=== PATIENT | female | born 1965 | race Caucasian/White ===

== ENCOUNTER 2018-01-28 09:53 | Outpatient (CLI) | payer BC, SELFPAY ==
[2018-01-28 11:57] LABS: BUN 16 mg/dL (7-18); CREATININE 0.95 mg/dL (0.55-1.02); Calcium 9.2 mg/dL (8.5-10.1); Chloride 102 mmol/L (98-107); Cholesterol 241 mg/dL (50-200); Glucose 90 mg/dL (70-100); HDL Cholesterol 60 mg/dL (40-60); LDL CHOLESTEROL 156 mg/dL (<100); Potassium 4.2 mmol/L (3.5-5.1); Sodium 140 mmol/L (136-145); Triglyceride 161 mg/dL (30-150)
== END 2018-01-28 10:13 ==
PROVIDERS: PCP Nurse Practitioner Family; Visit Provider Nurse Practitioner Family
DX: Z13.1 Encounter for screening for diabetes mellitus (principal); E78.5 Hyperlipidemia, unspecified
CPT/HCPCS: 36415; 80048; 80061; 83721

== ENCOUNTER 2018-02-21 01:16 | Outpatient (CLI) | payer BC, SELFPAY ==
--- NOTE | 2018-02-21 13:50 | DI.MAMMO_ITS ---
SYMPTOMS/DIAGNOSIS: SCREENING, Z12.31 MAMMOGRAMS: Mammograms were interpreted according to the usual protocol including computer analysis with CAD system, tomosynthesis and C view imaging. Comparison is with the prior examinations. The ovoid density in the outer left breast appears stable. No suspicious masses or microcalcifications are seen. The skin and axillae are unremarkable. IMPRESSION: No evidence for malignancy. Yearly mammography is recommended. Category 2, breast density B. MQSA ASSESSMENT OF FINDINGS: Negative with benign findings. Category 2. Patient will receive a letter notifying them of these results. BI-RADS category B. There are scattered areas of fibroglandular density.
== END 2018-02-21 01:36 ==
PROVIDERS: PCP Nurse Practitioner Family; Visit Provider Nurse Practitioner Family
DX: Z12.31 Encounter for screening mammogram for malignant neoplasm of breast (principal)
CPT/HCPCS: 77063; 77067

== ENCOUNTER 2018-04-11 15:52 | Outpatient (CLI) | payer OTHER, SELFPAY ==
[2018-04-11 17:51] LABS: TSH (W/Ref FT4) 1.68 uIU/mL (0.358-3.74)
== END 2018-04-11 16:12 ==
PROVIDERS: PCP Nurse Practitioner Family; Visit Provider Nurse Practitioner Family
DX: E03.9 Hypothyroidism, unspecified (principal)
CPT/HCPCS: 36415; 84443

== ENCOUNTER 2019-02-27 00:31 | Outpatient (CLI) | payer OTHER, SELFPAY ==
--- NOTE | 2019-02-27 14:53 | DI.MAMMO_ITS ---
EXAM: MAMMO SCREENING CLINICAL HISTORY: Screening.z12.39 TECHNIQUE: Mammograms were interpreted according to the usual protocol including computer analysis w [employer] CAD system, tomosynthesis and C-view imaging. FINDINGS: The breasts are of moderate density with fairly symmetrical distribution of fibroglandular tissue. N o dominant mass or clumped microcalcification is identified in either breast. Current examination is compared with previous examinations including February 2018 and there has been no gross interval maulik nge in appearance in comparison with previous studies. IMPRESSION: No specific evidence of malignancy at this time. Routine screening examinations are suggested at year ly intervals due to the family history of breast carcinoma. Category 1. Breast density, category B. BI-RADS Cat 1 - Negative. Breast Density - Category B - Scattered areas of fibroglandular density.
== END 2019-02-27 00:51 ==
PROVIDERS: PCP Nurse Practitioner Family; Visit Provider Nurse Practitioner Family
DX: Z12.31 Encounter for screening mammogram for malignant neoplasm of breast (principal); Z80.3 Family history of malignant neoplasm of breast
CPT/HCPCS: 77063; 77067

== ENCOUNTER 2020-03-26 04:34 | Outpatient (CLI) | payer OTHER, SELFPAY ==
--- NOTE | 2020-03-26 08:30 | DI.MAMMO_ITS ---
EXAM: MG MAMMO SCREENING CLINICAL HISTORY: screening. TECHNIQUE: Bilateral full field digital CC and MLO mammographic images were obtained with 3D tomosyn thesis and utilizing computer aided detection (CAD). COMPARISON: Prior mammograms dating back to 2010, the most recent being February 2019. FINDINGS: There are no CAD designations. No new right breast findings. Small nodular density superiorly in the right breast is unchanged from prior studies. In the left breast on cc imaging there is a suggestion of increasing subtle nodular densities medial of center, posteriorly. These average 5 millimeters in size. Less evident on the M LO view. There are no malignant-appearing microcalcification groups in this region or elsewhere in e ither breast. There is no significant architectural distortion nor skin thickening-retraction. IMPRESSION: 1. Stable benign right breast findings. 2. Possible nodular densities posteriorly in the left breast. Spot compression cc 3D view recommend ed. Also possible ultrasound. BI-RADS Category 0 - Assessment Incomplete: Need additional imaging evaluation Breast Density - Category B - Scattered areas of fibroglandular density Breast density Category C or D implies that the patient has dense breast tissue. Dense breast tissue can make it harder to find cancer on a mammogram. Dense breast tissue is also associated with an incr eased risk of breast cancer. This information about the result of the mammogram report was provided to the patient to raise their awareness. Use this report when you speak with the patient about their risks for breast cancer, which includes their family history. At that time, you may recommend additional screening tests (Ultrasoun d or MRI) as these tests may add significant information. A negative radiographic report should not delay biopsy if a dominant or clinically suspicious mass is present. Up to ten percent of cancers are not identified on mammography. A negative report may reinforce clinical impression. Adenosis and dense breasts may obscure an underlying neoplasm. False positive reports average 6 to 10%. Patient will receive a letter notifying them of these results.
== END 2020-03-26 04:54 ==
PROVIDERS: PCP Nurse Practitioner Adult Health; Visit Provider Nurse Practitioner Family
DX: Z12.31 Encounter for screening mammogram for malignant neoplasm of breast (principal); R92.8 Other abnormal and inconclusive findings on diagnostic imaging of breast
CPT/HCPCS: 77063; 77067

== ENCOUNTER 2020-04-02 03:03 | Outpatient (CLI) | payer OTHER, SELFPAY ==
--- NOTE | 2020-04-02 | DI.MAMMO_ITS ---
EXAM: MG MAMMO SCREEN CALL BACK UNI and U/S breast LT limited CLINICAL HISTORY: F/U MAMMO,LT BREAST SUBTLE POSSIBLE NODULAR DENSITIES. TECHNIQUE: Craniocaudal and mediolateral oblique Full Field Digital Mammography views of the left br east with Computer Aided Diagnosis followed by Tomosynthesis and left breast ultrasound. COMPARISON: Priors available for comparison. FINDINGS: Mammography/Tomosynthesis: Masses/Architectural Distortion: There are few stable tiny (less than 5 mm) nodules in the outer left breast. No areas of architectural distortion are seen. Microcalcifictions: No suspicious pleomorphic-type are seen. Skin Thickening/Nipple Retraction: None. Left breast US: Echotexture: Normal appearance of the glandular tissue. Shadowing: No suspicious foci. Cyst: There is a 4 mm cyst at the 6 o'clock position of the left breast 5 cm from the nipple. Solid lesions: None seen. Ductal dilation: None. IMPRESSION: 1. No evidence of malignancy is noted. 2. Unless there is more urgent need, follow-up screening mammography is recommended, as per [place] [employer] guidelines. 3. The findings were discussed with the patient on the date of the examination. BI-RADS Category 2 - Benign Findings Breast Density - Category B - Scattered areas of fibroglandular density Breast density Category C or D implies that the patient has dense breast tissue. Dense breast tissue can make it harder to find cancer on a mammogram. Dense breast tissue is also associated with an incr eased risk of breast cancer. This information about the result of the mammogram report was provided to the patient to raise their awareness. Use this report when you speak with the patient about their risks for breast cancer, which includes their family history. At that time, you may recommend additional screening tests (Ultrasoun d or MRI) as these tests may add significant information. A negative radiographic report should not delay biopsy if a dominant or clinically suspicious mass is present. Up to ten percent of cancers are not identified on mammography. A negative report may reinforce clinical impression. Adenosis and dense breasts may obscure an underlying neoplasm. False positive reports average 6 to 10%. Patient will receive a letter notifying them of these results.
== END 2020-04-02 03:23 ==
PROVIDERS: PCP Nurse Practitioner Adult Health; Visit Provider Nurse Practitioner Family
DX: R92.8 Other abnormal and inconclusive findings on diagnostic imaging of breast (principal); N60.02 Solitary cyst of left breast
CPT/HCPCS: 76642; 77063; 77067

== ENCOUNTER 2020-10-16 14:17 | Outpatient (REF) | payer OTHER, SELFPAY ==
[2020-10-17 23:55] LABS: COVID-19 RT-PCR UVMMC Result Negative (Negative)
== END 2020-10-16 14:18 | disposition home or self-care (01) ==
LOC: LBN 14:17
PROVIDERS: PCP Nurse Practitioner Adult Health; Visit Provider Nurse Practitioner Family
DX: Z20.822 Contact with and (suspected) exposure to COVID-19 (principal); J02.9 Acute pharyngitis, unspecified
CPT/HCPCS: U0003

== ENCOUNTER 2021-02-24 02:34 | Outpatient (CLI) | payer OTHER, SELFPAY ==
[2021-02-24 10:23] LABS: ALT 26 U/L (14-59); AST 15 U/L (15-37); Albumin 3.7 g/dL (3.4-5.0); Alkaline Phosphatase 84 U/L (46-116); BUN 17 mg/dL (7-18); Bilirubin, Total 0.5 mg/dL (0.2-1.0); CREATININE 0.9 mg/dL (0.55-1.02); Calcium 9.1 mg/dL (8.5-10.1); Calculated LDL 169 mg/dL (<100); Chloride 104 mmol/L (98-107); Cholesterol 264 mg/dL (<200); Glucose 93 mg/dL (74-106); HDL Cholesterol 66 mg/dL (40-60); Potassium 4.4 mmol/L (3.5-5.1); Sodium 140 mmol/L (136-145); Triglyceride 147 mg/dL (<150)
== END 2021-02-24 02:35 | disposition home or self-care (01) ==
LOC: LBO 02:34
PROVIDERS: PCP Nurse Practitioner Adult Health; Visit Provider Nurse Practitioner Adult Health
DX: Z13.220 Encounter for screening for lipoid disorders (principal); Z13.1 Encounter for screening for diabetes mellitus
CPT/HCPCS: 36415; 80053; 80061

== ENCOUNTER 2021-03-31 01:06 | Outpatient (CLI) | payer BC, SELFPAY ==
--- NOTE | 2021-03-31 06:30 | DI.MAMMO_ITS ---
Exam(s) MAMMO SCREENING EXAM: MAMMO SCREENING CLINICAL HISTORY: screening,z12.39. TECHNIQUE: Bilateral full field digital CC and MLO mammographic images were obtained with 3D tomosyn thesis and utilizing computer aided detection (CAD). COMPARISON: Prior mammograms were reviewed, the most recent being . FINDINGS: There has been no significant change in the appearance and distribution of the fibroglandular tissue. There are no new spiculated masses nor malignant appearing microcalcification groups. Benign-appearing nodules in both breasts appear unchanged from prior studies. There is no significant architectural distortion nor skin thickening-retraction. IMPRESSION: Stable benign findings. No radiographic evidence of malignancy. BI-RADS Category 2 - Benign Findings Breast Density - Category B - Scattered areas of fibroglandular density Breast density Category C or D implies that the patient has dense breast tissue. Dense breast tissue can make it harder to find cancer on a mammogram. Dense breast tissue is also associated with an incr eased risk of breast cancer. This information about the result of the mammogram report was provided to the patient to raise their awareness. Use this report when you speak with the patient about their risks for breast cancer, which includes their family history. At that time, you may recommend additional screening tests (Ultrasoun d or MRI) as these tests may add significant information. A negative radiographic report should not delay biopsy if a dominant or clinically suspicious mass is present. Up to ten percent of cancers are not identified on mammography. A negative report may reinforce clinical impression. Adenosis and dense breasts may obscure an underlying neoplasm. False positive reports average 6 to 10%. Patient will receive a letter notifying them of these results.
== END 2021-03-31 01:26 ==
PROVIDERS: PCP Nurse Practitioner Adult Health; Visit Provider Nurse Practitioner Adult Health
DX: Z12.31 Encounter for screening mammogram for malignant neoplasm of breast (principal)
CPT/HCPCS: 77063; 77067

== ENCOUNTER 2021-05-12 16:06 | Outpatient (REF) | payer BC, SELFPAY ==
--- NOTE | 2021-05-12 14:40 | PAPFT_PTH ---
PATIENT: Jaimee Oconnell LOC: [facility] U#:[id number] AGE/SX: 55/F ROOM: RE05/12/[address]: Nay Canada MD : 1965 BED: DIS: 05/12/2021 SPEC #: [id number] RECD: 05/12/21 17:49 STATUS: KATHRYN RENatan #: [id number] FRANKO: 05/12/21 14:[address]: Nay Canada DEPT: [facility] Cytology RECD BY: Leilani Mckay ENTERED: 05/12/21 17:50 SP TYPE: PAPFT GRACIA DR: Celia Mathew APRN Tissues: 1 - CX/ENDOCX FOR PAP SMEARS Procedures: PAP THIN PREP/UVM Screening HPV DNA PROBE Comments: [id number]
== END 2021-05-12 16:07 | disposition home or self-care (01) ==
LOC: LBN 16:06
PROVIDERS: PCP Nurse Practitioner Adult Health; Visit Provider Obstetrics & Gynecology
DX: Z12.4 Encounter for screening for malignant neoplasm of cervix (principal); Z11.51 Encounter for screening for human papillomavirus (HPV)
CPT/HCPCS: 88142; 87624

== ENCOUNTER 2022-03-22 03:22 | Outpatient (CLI) | payer BC, SELFPAY ==
[2022-03-22 12:28] LABS: ESR 6 mm/hr (0-30)
[2022-03-22 12:30] LABS: Abs Immature Grans 0.03 10^3/uL (0.0-0.06); Absolute Basophil Count 0.09 10^3/uL (0.0-0.2); Absolute Eosinophil Count 0.31 10^3/uL (0.0-0.7); Absolute Lymphocyte Count 2.45 10^3/uL (1.2-3.4); Absolute Monocyte Count 0.68 10^3/uL (0.1-0.8); Absolute Neutrophil Count 4.55 10^3/uL (1.2-6.7); Basophils % 1.1; Eosinophils % 3.8; HCT 43.9 % (36.0-46.0); HGB 14.6 g/dL (11.2-15.7); Immature Grans % 0.4; Lymphocytes % 30.2; MCHC 33.3 % (32.0-36.0); MCV 90 fL (80-95); MPV 10.9 fL (8.0-11.0); Monocytes % 8.4; Neutrophils % 56.1; Platelet Count 255 10^3/uL (130-400); RBC 4.86 10^6/uL (3.93-5.22); RDW 12.6 % (11.7-14.6); RDW-SD 41.9 fL; WBC 8.11 10^3/uL (4.4-10.8)
[2022-03-22 13:27] LABS: ALT 23 U/L (14-59); AST 22 U/L (15-37); Albumin 3.9 g/dL (3.4-5.0); Alkaline Phosphatase 87 U/L (46-116); BUN 19 mg/dL (7-18); Bilirubin, Total 0.4 mg/dL (0.2-1.0); CREATININE 0.9 mg/dL (0.55-1.02); Calcium 9.6 mg/dL (8.5-10.1); Chloride 103 mmol/L (98-107); Estimated GFR 74.57 (mL/min/1.73m2); Glucose 97 mg/dL (74-106); Potassium 3.8 mmol/L (3.5-5.1); Sodium 140 mmol/L (136-145); TSH (W/Ref FT4) 1.74 uIU/mL (0.36-3.74); Total Protein 7.5 g/dL (6.4-8.2)
== END 2022-03-22 03:23 | disposition home or self-care (01) ==
LOC: LOS 03:22
PROVIDERS: PCP Nurse Practitioner Adult Health; Visit Provider Family Medicine
DX: R11.0 Nausea; E78.5 Hyperlipidemia, unspecified; R42 Dizziness and giddiness
CPT/HCPCS: 36415; 80053; 85652; 84443; 85025

== ENCOUNTER 2022-03-23 13:47 | Outpatient (RCR) | payer BC, SELFPAY ==
--- NOTE | 2022-03-23 13:45 | HOLTER_ITS ---
APPROVED REPORT Conclusion This is a 48-hour Holter monitor ordered for dizziness Rhythm throughout was sinus with an average heart rate of 77. Minimum was 55, maximum 117 A total of 2 isolated premature ventricular contractions were recorded. There were 6 isolated premat ure atrial contractions There was no atrial fibrillation, no supraventricular tachycardia, no high-grade AV block, no pauses greater than 3 seconds
== END 2022-04-11 23:59 | disposition home or self-care (01) ==
LOC: CARDOPNVT 13:47
PROVIDERS: PCP Nurse Practitioner Adult Health; Visit Provider Family Medicine
DX: I49.3 Ventricular premature depolarization (principal)
CPT/HCPCS: 93225; 93226

== ENCOUNTER 2022-07-06 01:09 | Outpatient (CLI) | payer BC, SELFPAY ==
--- NOTE | 2022-07-06 08:28 | DI.MAMMO_ITS ---
Exam(s) MAMMO SCREENING EXAM: MAMMO SCREENING CLINICAL HISTORY: screening TECHNIQUE: Bilateral full field digital CC and MLO mammographic images were obtained with 3D tomosyn thesis and utilizing computer aided detection (CAD). COMPARISON: Available for comparison. FINDINGS: Masses/Architectural Distortion: There is a new ovoid 7 mm nodule in the posterior central left breas t on the MLO view. Microcalcifications: No suspicious pleomorphic-type are seen. Skin Thickening/Nipple Retraction: None. IMPRESSION: 1. New 7 mm nodule in the posterior central left breast on the MLO view. 2. A spot compression MLO views requested. A complete left breast ultrasound should be obtained at t hat time. BI-RADS Category 0 - Assessment Incomplete: Need additional imaging evaluation Breast Density - Category B - Scattered areas of fibroglandular density Breast density category C or D implies that the patient has dense breast tissue. Dense breast tissue is very common and is not abnormal but dense breast tissue can make it harder to find cancer on a ma mmogram. Also, dense breast tissue may increase their breast cancer risk. This information about the result of the mammogram report was provided to the patient to raise their awareness. Use this report when you speak with the patient about their risks for breast cancer, which includes their family hist ory. At that time, you may recommend for more screening tests (Ultrasound or MRI) as they might be us eful based on their risk. A negative radiographic report should not delay biopsy if a dominant or clinically suspicious mass is present. Up to ten percent of cancers are not identified on mammography. A negative report may reinforce clinical impression. Adenosis and dense breasts may obscure an underlying neoplasm. False positive reports average 6 to 10%. Patient will receive a letter notifying them of these results.
== END 2022-07-06 01:29 ==
LOC: DI 01:09
PROVIDERS: PCP Nurse Practitioner Adult Health; Visit Provider Obstetrics & Gynecology
DX: Z12.31 Encounter for screening mammogram for malignant neoplasm of breast (principal)
CPT/HCPCS: 77063; 77067

== ENCOUNTER 2022-07-10 02:05 | Outpatient (CLI) | payer BC, SELFPAY ==
--- NOTE | 2022-07-10 | DI.US_ITS ---
Exam(s) MG MAMMO SCREEN CALL BACK UNI US BREAST LT LIMITED EXAM: MG MAMMO SCREEN CALL BACK UNI and U/S breast LT limited CLINICAL HISTORY: F/U MAMMO, NEW 7 MM NODULE POSTERIOR LT BREAST. TECHNIQUE: Craniocaudal and mediolateral oblique Full Field Digital Mammography views of the left br east with Computer Aided Diagnosis followed by Tomosynthesis and left breast ultrasound. COMPARISON: Comparison is made with prior examinations. FINDINGS: Mammography/Tomosynthesis: Masses/Architectural Distortion: There is again seen a well-circumscribed 6 mm nodule in the medial l eft breast. No suspicious nodules or areas of architectural distortion are seen. Microcalcifictions: No suspicious pleomorphic-type are seen. Skin Thickening/Nipple Retraction: None. Limited left breast US: Echotexture: Normal appearance of the glandular tissue. Shadowing: No suspicious foci. Cyst: There is a 2.6 x 2.9 x 1.5 mm cyst at the 9 o'clock position of the left breast 2 cm from the n ipple. There is a 1.6 x 1.9 x 1.9 mm cyst at the 6 o'clock position of the left breast 4 cm from the nipple. Solid lesions: None seen. Ductal dilation: None. IMPRESSION: 1. No definite evidence of malignancy is noted. 2. A six-month follow-up left mammogram and ultrasound are requested for re-evaluation. 3. The findings were discussed with the patient on the date of the examination. BI-RADS Category 3 - 6 month - Probably Benign Finding: Recommend follow-up imaging in 6 months Breast Density - Category B - Scattered areas of fibroglandular density Breast density Category C or D implies that the patient has dense breast tissue. Dense breast tissue can make it harder to find cancer on a mammogram. Dense breast tissue is also associated with an incr eased risk of breast cancer. This information about the result of the mammogram report was provided to the patient to raise their awareness. Use this report when you speak with the patient about their risks for breast cancer, which includes their family history. At that time, you may recommend additional screening tests (Ultrasoun d or MRI) as these tests may add significant information. A negative radiographic report should not delay biopsy if a dominant or clinically suspicious mass is present. Up to ten percent of cancers are not identified on mammography. A negative report may reinforce clinical impression. Adenosis and dense breasts may obscure an underlying neoplasm. False positive reports average 6 to 10%. Patient will receive a letter notifying them of these results.
== END 2022-07-10 02:25 ==
PROVIDERS: PCP Nurse Practitioner Adult Health; Visit Provider Obstetrics & Gynecology
DX: R92.8 Other abnormal and inconclusive findings on diagnostic imaging of breast (principal)
CPT/HCPCS: 76642; 77063; 77067

== ENCOUNTER → 2023-01-31 01:54 | Outpatient (CLI) | payer BC, SELFPAY ==
--- NOTE | 2023-01-31 08:15 | DI.US_ITS ---
Exam(s) MG MAMMO DIAGNOSTIC UNI US BREAST LT LIMITED EXAM: MG MAMMO DIAGNOSTIC UNI CLINICAL HISTORY: f/u MAMMO, 5 MO F/U, R92.8. COMPARISON: US US BREAST LT LIMITED from 07/10/2022 US US BREAST LT LIMITED from 01/31/2023 TECHNIQUE: Craniocaudal and mediolateral oblique Full Field Digital Mammography views of the left br east with Computer Aided Diagnosis followed by Tomosynthesis and left breast ultrasound. FINDINGS: Mammography/Tomosynthesis: Masses/Architectural Distortion: Stable 6 millimeter circumscribed nodule in the central left breast. Microcalcifications: No suspicious pleomorphic-type are seen. Skin Thickening/Nipple Retraction: None. Left breast US: Echotexture: Normal appearance of the glandular tissue. Shadowing: No suspicious foci. Cyst: None. Solid lesions: None seen. Ductal dilation: None. IMPRESSION: 1. No evidence of malignancy is noted. 2. Recommend bilateral screening mammography in 6 months. BI-RADS Category 2 - Benign Findings Breast Density - Category B - Scattered areas of fibroglandular density A negative radiographic report should not delay biopsy if a dominant or clinically suspicious mass is present. Up to ten percent of cancers are not identified on mammography. A negative report may reinforce clinical impression. Adenosis and dense breasts may obscure an underlying neoplasm. False positive reports average 6 to 10%. Patient will receive a letter notifying them of these results.
== END ==
PROVIDERS: PCP Nurse Practitioner Adult Health; Visit Provider Obstetrics & Gynecology
DX: Z12.31 Encounter for screening mammogram for malignant neoplasm of breast (principal); R92.8 Other abnormal and inconclusive findings on diagnostic imaging of breast
CPT/HCPCS: 76642; 77061; 77065; G0279

== ENCOUNTER 2023-03-07 01:45 | Outpatient (CLI) | payer BC, SELFPAY ==
[2023-03-07 09:30] LABS: Calculated LDL 194 mg/dL (<100); Cholesterol 290 mg/dL (<200); HDL Cholesterol 72 mg/dL (40-60); Triglyceride 122 mg/dL (<150)
== END 2023-03-07 01:46 | disposition home or self-care (01) ==
PROVIDERS: PCP Nurse Practitioner Adult Health; Referring Provider Nurse Practitioner Adult Health; Visit Provider Nurse Practitioner Adult Health
DX: Z13.220 Encounter for screening for lipoid disorders (principal)
CPT/HCPCS: 36415; 80061

== ENCOUNTER 2023-06-06 04:48 | Outpatient (CLI) | payer BC, SELFPAY ==
[2023-06-06 11:08] LABS: Calculated LDL 150 mg/dL (<100); Cholesterol 235 mg/dL (<200); HDL Cholesterol 63 mg/dL (40-60); Triglyceride 110 mg/dL (<150)
[2023-06-08 10:03] LABS: Lipoprotein (a) 12 nmol/L (<75)
== END 2023-06-06 04:49 | disposition home or self-care (01) ==
LOC: LBO 04:49
PROVIDERS: Absent Provider Nurse Practitioner Adult Health; PCP Nurse Practitioner Adult Health; Visit Provider Nurse Practitioner Adult Health
DX: E78.5 Hyperlipidemia, unspecified (principal)
CPT/HCPCS: 36415; 80061; 83695

== ENCOUNTER → 2023-07-19 00:32 | Outpatient (CLI) | payer BC, SELFPAY ==
--- NOTE | 2023-07-19 12:30 | DI.MAMMO_ITS ---
Exam(s) MAMMO SCREENING EXAM: MAMMO SCREENING CLINICAL HISTORY: screening,z12.31 TECHNIQUE: Bilateral full field digital CC and MLO mammographic images were obtained with 3D tomosyn thesis and utilizing computer aided detection (CAD). COMPARISON: Available for comparison. FINDINGS: Masses/Architectural Distortion: There is a new 7 mm area of nodularity in the retroareolar region of the right breast on the MLO view. There are no areas of architectural distortion. Microcalcifications: No suspicious pleomorphic-type are seen. Skin Thickening/Nipple Retraction: None. IMPRESSION: 1. New 7 mm area of nodularity in the retroareolar region of the right breast on the MLO view. 2. Spot compression views requested for further evaluation. Ultrasound may be indicated at that time . BI-RADS Category 0 - Assessment Incomplete: Need additional imaging evaluation Breast Density - Category B - Scattered areas of fibroglandular density Breast density category C or D implies that the patient has dense breast tissue. Dense breast tissue is very common and is not abnormal but dense breast tissue can make it harder to find cancer on a ma mmogram. Also, dense breast tissue may increase their breast cancer risk. This information about the result of the mammogram report was provided to the patient to raise their awareness. Use this report when you speak with the patient about their risks for breast cancer, which includes their family hist ory. At that time, you may recommend for more screening tests (Ultrasound or MRI) as they might be us eful based on their risk. A negative radiographic report should not delay biopsy if a dominant or clinically suspicious mass is present. Up to ten percent of cancers are not identified on mammography. A negative report may reinforce clinical impression. Adenosis and dense breasts may obscure an underlying neoplasm. False positive reports average 6 to 10%. Patient will receive a letter notifying them of these results.
== END ==
PROVIDERS: PCP Nurse Practitioner Adult Health; Visit Provider Obstetrics & Gynecology
DX: Z12.31 Encounter for screening mammogram for malignant neoplasm of breast (principal); R92.8 Other abnormal and inconclusive findings on diagnostic imaging of breast
CPT/HCPCS: 77063; 77067

== ENCOUNTER 2023-07-23 18:46 | Outpatient (REF) | payer BC, SELFPAY ==
[2023-07-23 21:19] LABS: Bilirubin Negative (Negative); Blood Negative (Negative); Clarity Clear (Clear); Glucose Negative (Negative); Ketones Negative (Negative); Leukocyte Esterase Negative (Negative); Nitrite Negative (Negative); Urobilinogen 0.2 mg/dL (Up to 0.2); pH 5.5 (5-8)
== END 2023-07-23 18:47 | disposition home or self-care (01) ==
LOC: LBN 18:46
PROVIDERS: PCP Nurse Practitioner Adult Health; Visit Provider Nurse Practitioner Family
DX: R35.0 Frequency of micturition (principal)
CPT/HCPCS: 81003

== ENCOUNTER → 2023-07-25 02:29 | Outpatient (CLI) | payer BC, SELFPAY ==
--- NOTE | 2023-07-25 14:29 | DI.MAMMO_ITS ---
Exam(s) MAMMO SCREEN CALL BACK UNI EXAM: MAMMO SCREEN CALL BACK UNI CLINICAL HISTORY: R92.8 FU mammo, Rt breast new 7mm nodularity in retroareolar region. TECHNIQUE: Craniocaudal and mediolateral oblique Full Field Digital Mammography views of the right b reast with Computer Aided Diagnosis. COMPARISON: Comparison is made with prior examinations. FINDINGS: Mammography/Tomosynthesis: Masses/Architectural Distortion: The nodular area does not persist on the additional views. No suspi cious mass is seen. No areas of architectural distortion are present. Microcalcifictions: No suspicious pleomorphic-type are seen. Skin Thickening/Nipple Retraction: None. IMPRESSION: 1. No evidence of malignancy is noted. 2. Unless there is more urgent need, follow-up screening mammography is recommended, as per [place] [employer] guidelines. 3. The findings were discussed with the patient on the date of the examination. BI-RADS Category 1 - Negative Breast Density - Category B - Scattered areas of fibroglandular density Breast density Category C or D implies that the patient has dense breast tissue. Dense breast tissue can make it harder to find cancer on a mammogram. Dense breast tissue is also associated with an incr eased risk of breast cancer. This information about the result of the mammogram report was provided to the patient to raise their awareness. Use this report when you speak with the patient about their risks for breast cancer, which includes their family history. At that time, you may recommend additional screening tests (Ultrasoun d or MRI) as these tests may add significant information. A negative radiographic report should not delay biopsy if a dominant or clinically suspicious mass is present. Up to ten percent of cancers are not identified on mammography. A negative report may reinforce clinical impression. Adenosis and dense breasts may obscure an underlying neoplasm. False positive reports average 6 to 10%. Patient will receive a letter notifying them of these results.
== END ==
PROVIDERS: PCP Nurse Practitioner Adult Health; Visit Provider Obstetrics & Gynecology
DX: R92.8 Other abnormal and inconclusive findings on diagnostic imaging of breast (principal)
CPT/HCPCS: 77063; 77067

== ENCOUNTER 2023-08-18 17:30 | Emergency (ER) | payer BC, SELFPAY ==
[2023-08-18 17:32] VITALS: BP 175/98; PULSE 84; RESP 18; TEMP 36; O2SAT 100
--- NOTE | 2023-08-18 17:45 | DI.CT_ITS ---
Exam(s) CT HEAD CERVICAL SPINE WO EXAM: CT HEAD CERVICAL SPINE WO CLINICAL HISTORY: head injury. TECHNIQUE: Imaging Protocol: Axial computed tomography images with coronal and sagittal reformatted images were created and reviewed COMPARISON: No exams were available for comparison FINDINGS: BRAIN: There are no skull fractures nor fluid in the visualized paranasal sinuses. There is no evidence of intracranial hemorrhage, mass effect, or shift of midline structures. There are no extra-axial fluid collections. The ventricles are not enlarged or shifted and there is no blo od within the ventricular system nor within the basal cisterns. CERVICAL SPINE: There is no evidence of fracture nor listhesis. No significant prevertebral soft tissue swelling. There is multilevel disc space narrowing at C4-5, C5-6, and C6-7 levels. There also Luschka joint os teophytes at the C 6-7 level left-side. There is some facet arthropathy. There is no significant facet joint malalignment. No significant osseous lesions evident. IMPRESSION: No acute intracranial findings on this noninfused CT scan of the brain. No evidence of cervical spine fracture, malalignment, nor acute compromise of the cervical spinal can al. Multilevel degenerative disc disease. RADIATION DOSE DELIVERED: 1,278.18mGy.cm Total DLP DATA REPOSITORY: All CT scans at this facility are submitted to the National Radiology Data Registry (NRDR) Dose Index Registry (DIR) with the [employer] ([employer]). RADIATION OPTIMIZATION: All CT scans at this facility use at least one of these dose optimization te chniques: automated exposure control; mA and/or kV adjustment per patient size (includes targeted exa ms where dose is matched to clinical indication); or iterative reconstruction.
--- NOTE | 2023-08-18 18:27 | DI.VRAD_ITS ---
PROCEDURE INFORMATION: Exam: CT Head Without Contrast Exam date and time: 08/18/2023 6:03 PM Age: 58 years old Clinical indication: Injury or trauma; Fall; Abrasion; Forehead; Other: ? Bumped forhead TECHNIQUE: Imaging protocol: Computed tomography of the head without contrast. COMPARISON: No relevant prior studies available. FINDINGS: Brain: Normal. No hemorrhage. Unremarkable white matter. No mass effect. Cerebral ventricles: No ventriculomegaly. Paranasal sinuses: Visualized sinuses are unremarkable. No fluid levels. Mastoid air cells: Visualized mastoid air cells are well aerated. Bones: Unremarkable. No acute fracture. Soft tissues: Unremarkable. IMPRESSION: No evidence for acute intracranial abnormality. PROCEDURE INFORMATION: Exam: CT Cervical Spine Without Contrast Exam date and time: 08/18/2023 6:03 PM Age: 58 years old Clinical indication: Injury or trauma; Fall; Abrasion; Forehead; Other: ? Bumped forhead TECHNIQUE: Imaging protocol: Computed tomography of the cervical spine without contrast. COMPARISON: No relevant prior studies available. FINDINGS: Bones: No acute fracture. Normal alignment. No significant disc bulge or herniation. No severe spinal canal stenosis. No significant neural foraminal narrowing. Lungs: Lung apices are normal. Vasculature: Calcified carotid plaque noted bilaterally. Soft tissues: Unremarkable. IMPRESSION: No evidence for acute posttraumatic abnormality. Dictated and Authenticated by: Susannah Marquez MD. Ordering:DELMY Lora MD
--- NOTE | 2023-08-18 18:42 | ED.GENADUL_ITS ---
Discharge Plan Disposition Patient Disposition: Home Discharge Details Clinical Impression: Head injury Primary Care Provider: Celia Mathew ED Provider: Geno Gomez Home Meds and New Rx's Prescriptions: Continued Systane Ultra 0.4-0.3 % drops 1 drp OP DAILY PRN (Reason: dry eyes) fluocinolone 0.01 % solution 1 applic TP BID PRN (Reason: scalp dermatitis) Qty: 60 0RF Rx Instructions: Apply to scalp dermatitis as directed triamcinolone acetonide 0.5 % cream 1 applic TP PRN Qty: 45 3RF Rx Instructions: Apply to affected area, arms, legs, BID PRN. eye promise 1 drp PO QHS Patient Comments: 06/28/23- pt reports takes Eye Promise vitamins for dry eyes per eye doctor multivitamin [Daily Multi-Vitamin] 1 EACH tablet 1 ea PO DAILY calcium citrate-vitamin D3 [Citracal + D Maximum] 1 EACH tablet 1 ea PO DAILY Zyrtec 10 MG capsule 10 mg PO DAILY PRN Discharge Instructions Instructions: Head Injury (ED) Additional Instructions: Please follow-up with your primary care provider if you experience any lingering symptoms. Please be cleared by PCP before starting any sports if you have any concussion related symptoms. May use Tylenol as needed for occasional headache. Rest as needed if you start developing headache with eyestrain/computer use or sustained concentration Return to emergency care if you develop new vision changes, uncontrollable vomiting, severe headache, weakness, confusion, or if you are very worried and need to be rechecked again immediately HPI General Date/Time Provider Initiated Documentation: 08/18/23 17:34 . HPI Narrative: Jaimee is a 58-year-old female who presents to the emergency department today for evaluation of head injury. She reports around 5 PM today she was walking on a wooden ramp when she slipped, falling backwards and hitting her head. No loss of consciousness or seizure activity. does report she had slightly slurred speech immediately after the incident. She reports on and off frontal headache. Denies dizziness, vision change, neck pain, back pain, bleeding from ears/nose/mouth, dental damage, nausea/vomiting, weakness, difficulty ambulating. No previous head injury. No anticoagulation. Related Data Home Medications Medication Instructions Recorded Confirmed Citracal + Vitamin D Maximum 315 1 ea PO DAILY 06/17/13 08/18/23 mg calcium-6.25 mcg (250 unit) tablet (calcium citrate-vitamin D3) cetirizine 10 mg capsule (Zyrtec) 10 mg PO DAILY PRN 06/17/13 08/18/23 multivitamin (Daily Multi-Vitamin 1 ea PO DAILY 06/17/13 08/18/23 tablet) peg 400-propylene glycol 0.4 %-0.3 1 drp ophthalmic (eye) DAILY PRN 01/03/18 08/18/23 % eye drops (Systane Ultra) dry eyes fluocinolone 0.01 % topical 1 applic topical BID PRN scalp 02/19/23 08/18/23 solution dermatitis #60 mL triamcinolone acetonide 0.5 % 1 applic topical PRN #45 grams 02/19/23 08/18/23 topical cream eye promise 1 drp PO QHS 06/28/23 08/18/23 Previous Rx's Medication Instructions Recorded fluocinolone 0.01 % topical 1 applic topical BID PRN scalp 02/19/23 solution dermatitis #60 mL triamcinolone acetonide 0.5 % 1 applic topical PRN #45 grams 02/19/23 topical cream Allergies Allergy/AdvReac Type Severity Reaction Status Date / Time gold Au 198 Allergy Intermediate RASH Verified 08/18/23 17:38 neomycin Allergy Intermediate RASH Verified 08/18/23 17:38 Sulfa (Sulfonamide Allergy Intermediate RASH Verified 08/18/23 17:38 Antibiotics) cortisone Allergy Skin Rash Verified 08/18/23 17:38 hydrocortisone Allergy Other (See Verified 08/18/23 17:38 Comment) General Stated Complaint: HeadInjury GUILLERMO: 3 Review of Systems Narrative: see HPI Exam Const General: cooperative, healthy appearing, comfortable and no acute distress Nutritional Appearance: average body habitus Orientation: alert and oriented x3 HENMT Head: normal to inspection, no palpable skull fracture, no Suárez's sign and no raccoon eyes Ears: hearing grossly normal bilaterally and TM's normal bilaterally General nose exam: external nose normal Face and sinus: normal facial exam Mouth: oral mucosae normal Teeth and gingiva: dentition normal Eyes Pupils: PERRL EOM: EOM intact bilaterally Neck Neck: normal visual inspection and full ROM Resp Effort & Inspection: normal respiratory effort and able to speak in complete sentences Auscultation: clear to auscultation bilaterally Cardio Rate: regular rate Rhythm: regular rhythm Neuro General: no focal motor deficits Cranial Nerves: CN's II-XI intact bilaterally, PERRL, EOM intact bilaterally, no nystagmus, hearing normal and able to elevate shoulders bilaterally Cognition: normal cognition Speech: speech normal Gait: normal gait Motor: muscle tone normal throughout and strength 5/5 throughout Sensory Exam: no sensory deficits noted Coordination: [id number] test normal, Romberg test normal, tandem gait normal, Does not sway with eyes open and rapid alternating movement UE normal Course Vital Signs Vital signs: Vital Signs Temperature 36.0 C L 08/18/23 17:32 Pulse 84 08/18/23 17:32 Respiratory Rate 18 08/18/23 17:32 Blood Pressure 175/98 H 08/18/23 17:32 Pulse Oximetry 100 08/18/23 17:32 Temperature 36.0 C L 08/18/23 17:32 Pulse 84 08/18/23 17:32 Respiratory Rate 18 08/18/23 17:32 Respiratory Effort Normal, Non-Labored 08/18/23 17:41 Respiratory Depth Normal 08/18/23 17:41 Respiratory Pattern Normal 08/18/23 17:41 Blood Pressure 175/98 H 08/18/23 17:32 Pulse Oximetry 100 08/18/23 17:32 Oxygen Delivery Method Room Air 08/18/23 17:32 Oxygen Flow Rate 0 08/18/23 17:32 Medical Decision Making Jaimee is a 58-year-old female who presents to the emergency department today for evaluation of head injury. She reports around 5 PM today she was walking on a wooden ramp when she slipped, falling backwards and hitting her head. No loss of consciousness or seizure activity. does report she had slightly slurred speech immediately after the incident. She reports on and off frontal headache. Denies dizziness, vision change, neck pain, back pain, bleeding from ears/nose/mouth, dental damage, nausea/vomiting, weakness, difficulty ambulating. No previous head injury. No anticoagulation. Physical exam very reassuring. Cranial nerves II through XII intact as tested. PERRL, EOMs intact. No dental damage. No hemotympanums, TMs pearly valenzuela, translucent. Full painless range of motion to C-spine. Note step-off/te nderness/deformity to C-spine. Normal finger finger, finger-nose, rapid alternating movements, Romberg, gait, tandem walk. Tray and presentation concerning for intracranial hemorrhage versus concussion. Head and C-spine CT performed, no acute abnormality noted. Likely concussion. Reviewed discharge instructions with patient and her , including red flags indicate need for return to emergency care. They are agreeable to plan of care Imaging Data Radiologic Study: Radiologist's impression: PROCEDURE INFORMATION: Exam: CT Head Without Contrast Exam date and time: 08/18/2023 6:03 PM Age: 58 years old Clinical indication: Injury or trauma; Fall; Abrasion; Forehead; Other: ? Bumped forhead TECHNIQUE: Imaging protocol: Computed tomography of the head without contrast. COMPARISON: No relevant prior studies available. FINDINGS: Brain: Normal. No hemorrhage. Unremarkable white matter. No mass effect. Cerebral ventricles: No ventriculomegaly. Paranasal sinuses: Visualized sinuses are unremarkable. No fluid levels. Mastoid air cells: Visualized mastoid air cells are well aerated. Bones: Unremarkable. No acute fracture. Soft tissues: Unremarkable. IMPRESSION: No evidence for acute intracranial abnormality. Quality:SDOH Health Related Social Needs: No Data to Display [facility] All Active Problems (Updated 08/18/23 @ 18:45 by Geno Vargas) Head injury (Acute) Heartburn (Acute ~02/2022) Famotidine trial (OTC); better with fiber! Dermatitis (Acute) Eczema vs. Psoriasis Dry eyes, bilateral (Chronic ~2017) Hyperlipidemia, unspecified (Chronic) 01/2018 labs: 10-year ASCVD risk = ~1.8% --> no statin indicated at this time; 2020 as well 06/2023-->ASCVD score 3%-->no statin indicated with assertive TLCs (treadmill, total gym, diet) Medical History Hypercholesterolemia with LDL greater than 190 mg/dL (~04/2023) Fibroids Excessive gas (~2020) Exercise, Beano & Lactaid manage Psoriasis Dr. Polo (2019); manages topical steroids Diverticulosis large intestine w/o perforation or abscess w/o bleeding (04/15/15) Mild, localized to sigmoid per 2016 colonoscopy at [facility] colo 06/22/22;[facility];sigmoid diverticulsis, 3 diminutive polyps resected.letter to pt from states polyps were not precancerous and recommeded repeat exam in 10 yrs Atrophic vaginitis (12/16/14) Allergic rhinitis (12/16/14) GERD (gastroesophageal reflux disease) HLD (hyperlipidemia) Surgical History Rotator Cuff Repair (07/28/13) R shoulder labrum and [address] Mart Family History Grandfather , MS at age 70. Colon cancer Mother , Lung CA at age 69. Lung cancer Hyperlipidemia Father , Prostate CA at age 77. Prostate cancer Hypertension Hyperlipidemia Sister Breast cancer Maternal Aunt Ovarian cancer Breast cancer Dx'ed 80s Other Diabetes Social History Smoking/Tobacco Use Status: Never Smoking risk assessment performed?: Yes Alcohol Intake: current Alcohol Intake frequency: a few times a week Drug use: Never Substance use type: does not use Adopted: No Caregiver/Support person: No Foster care: No Household members: spouse Housing: house Number of Children: 3 number of grandchildren: 1 Communication Needs: Corrective Lenses Education Level: high school Do you need help understanding health information?: Rarely 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, member rep Pets and animals: Yes Pets and animals: cat(s) and dog(s) Sexually active: No Do you think of yourself as: straight/heterosexual Current gender identity: female What is your relationship status?: How often do you talk on the phone with friends or family?: twice per week How often do you get together with friends or relatives?: once per week How often do you attend buddhism or samaritan services?: decline to answer Do you belong to any clubs or organized social groups?: yes Panel score (0-1 are the most socially isolated patients): 3 What type of physical activity do you participate in: walking, weight lifting and other Details: Rowing Machine Duration: 15-30 minutes/day Frequency: 3-4 times per week Radha/Baptism: None Special radha needs: No Seatbelt use: always Helmet use: Yes Helmet use: always Drive intox or ride w/intox nascar driver: No Water heater temp set <120 deg: Yes Working smoke detector in home: Yes Fire extinguisher in home: Yes Carbon monox detector in home: Yes Firearms in home: Yes Do you feel safe at home: Yes Do you feel safe in your relationship?: Yes Female Reproductive History Menstrual Menopause type: natural (LMP ~42 y/o) History History 0 Para Hx # Term Pregnancies Multiple births Hx # Pregnancies Ectopic pregnancies AB induced Hx Number of Living Children AB spontaneous PAWSS Have you Been Recently Intoxicated or Drunk Within the Last 30 days?: No Have you Ever Experienced Previous Episodes of Alcohol Withdrawal?: No Have you ever Experienced Withdrawal Seizures?: No Have you ever Experienced Delirium Tremens(DT)s?: No Have you ever undergone Alcohol Rehabilitation Treatment (i.e, inpt ot outpatient treatment programs)?: No Have you ever Experienced Blackouts?: No Have you ever Combined Alcohol with other Downers within the last 90 days?: No Have you ever Combined Alcohol with any other Substance of Abuse during the last 90 days?: No Positive Blood Alcohol level on Presentation? [PCS.BAL]: No Evidence of Increased Autonomic Activity (i.e. HR>120, tremor, sweating, agitation, nausea)?: No Result: 0
== END 2023-08-18 19:35 | disposition home or self-care (01) ==
PROVIDERS: Emergency Provider Nurse Practitioner Family; PCP Nurse Practitioner Adult Health
DX: R51.9 Headache, unspecified (principal); S09.8XXA Other specified injuries of head, initial encounter; E78.5 Hyperlipidemia, unspecified; W01.0XXA Fall on same level from slipping, tripping and stumbling without subsequent striking against object, initial encounter; Y93.01 Activity, walking, marching and hiking
CPT/HCPCS: 99284; 70450; 72125

== ENCOUNTER 2024-09-10 02:03 | Outpatient (CLI) | payer BC, SELFPAY ==
--- NOTE | 2024-09-10 15:15 | DI.MAMMO_ITS ---
Exam(s) MAMMO SCREENING EXAM: MAMMO SCREENING CLINICAL HISTORY: screening TECHNIQUE: Mammograms were interpreted according to the usual protocol including computer analysis with CAD system, tomosynthesis and C-view imaging. COMPARISON: 2014 through 2023 FINDINGS: The breasts are composed of scattered fibroglandular densities, Breast Density category B. No suspicious masses or suspicious microcalcifications are seen. No skin thickening or abnormal axillary lymph nodes are seen. There has been no significant change from prior exams. IMPRESSION: BI-RADS Category 1, Negative mammogram Yearly screening mammography is recommended. Breast Density - Category B - There are scattered areas of fibroglandular density. Breast density Category C or D implies that the patient has dense breast tissue. Dense breast tissue can make it harder to find cancer on a mammogram. Dense breast tissue is also associated with an increased risk of breast cancer. This information about the result of the mammogram report was provided to the patient to raise their awareness. Use this report when you speak with the patient about their risks for breast cancer, which includes their family history. At that time, you may recommend additional screening tests (Ultrasound or MRI) as these tests may add significant information. A negative radiographic report should not delay biopsy if a dominant or clinically suspicious mass is present. Up to ten percent of cancers are not identified on mammography. A negative report may reinforce clinical impression. Adenosis and dense breasts may obscure an underlying neoplasm. False positive reports average 6 to 10%. Patient will receive a letter notifying them of these results.
== END 2024-09-10 02:23 ==
LOC: DI 02:04
PROVIDERS: PCP Nurse Practitioner Adult Health; Visit Provider Obstetrics & Gynecology
DX: Z12.31 Encounter for screening mammogram for malignant neoplasm of breast (principal); R92.323 Mammographic fibroglandular density, bilateral breasts
CPT/HCPCS: 77063; 77067